=== PATIENT | male | born 1985 | race African-American/Black ===

== ENCOUNTER 2022-08-31 08:36 | Emergency (ER) | payer SELFPAY ==
[2022-08-31 10:14] LABS: SARS-CoV-2 NAA Rapid Test Not Detected (NotDetected)
== END 2022-08-31 11:10 | disposition home or self-care (01) ==
LOC: ERS 08:36
DX: J06.9 Acute upper respiratory infection, unspecified (principal); Z20.822 Contact with and (suspected) exposure to COVID-19
CPT/HCPCS: 99283